=== PATIENT | male | born 1990 | race African-American/Black ===

== ENCOUNTER 2018-04-23 21:44 | Emergency (ER) | payer OTHER ==
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
[2018-04-24] MEDS ORDERED: OXYCODONE HCL IR 5 MG TABLET PO ONE (00:01)
[2018-04-24] MEDS ORDERED: ONDANSETRON 4 MG TAB.RAPDIS PO ONE (00:01)
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
[2018-04-24 00:30] VITALS: BP 131/77
== END 2018-04-24 00:45 | disposition home or self-care (01) ==
LOC: ER 21:44
DX: S06.9X9A Unspecified intracranial injury with loss of consciousness of unspecified duration, initial encounter (principal); S92.001A Unspecified fracture of right calcaneus, initial encounter for closed fracture; S80.11XA Contusion of right lower leg, initial encounter; M54.2 Cervicalgia; R07.9 Chest pain, unspecified; V49.40XA Driver injured in collision with unspecified motor vehicles in traffic accident, initial encounter; F17.200 Nicotine dependence, unspecified, uncomplicated; J45.909 Unspecified asthma, uncomplicated
CPT/HCPCS: 99283; 73610; 73030; 29515; S0119

== ENCOUNTER 2019-02-28 17:45 | Emergency (ER) | payer OTHER ==
[2019-02-28 17:53] VITALS: BP 120/92
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
== END 2019-02-28 19:18 | disposition left against medical advice (07) ==
LOC: ER 17:45
DX: R51 Headache (principal); M25.521 Pain in right elbow; M25.571 Pain in right ankle and joints of right foot; V49.40XA Driver injured in collision with unspecified motor vehicles in traffic accident, initial encounter; J45.909 Unspecified asthma, uncomplicated; Z53.20 Procedure and treatment not carried out because of patient's decision for unspecified reasons
CPT/HCPCS: 99281

== ENCOUNTER 2019-03-02 10:05 | Emergency (ER) | payer OTHER ==
[2019-03-02] MEDS ORDERED: HYDROCODONE/ACETAMINOPHEN 5-325 MG TABLET PO ONE (10:50)
[2019-03-02] MEDS ORDERED: IBUPROFEN 800 MG TABLET PO ONE (10:50)
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
--- NOTE | 2019-03-02 11:35 | RADIOLOGY REPORT (SQ) ---
EXAM DESCRIPTION: HAND RIGHT 3 VIEWS COMPLETED DATE/TIME: 03/02/2019 11:25 am REASON FOR STUDY: Injury COMPARISON: None. EXAM PARAMETERS: NUMBER OF VIEWS: Three views. TECHNIQUE: AP, lateral and oblique radiographic images acquired of the right hand. LIMITATIONS: None. FINDINGS: MINERALIZATION: Normal. BONES: No acute fracture or dislocation. No worrisome bone lesions. JOINTS: No effusions. SOFT TISSUES: No soft tissue swelling. No foreign body. OTHER: No other significant finding. IMPRESSION: NEGATIVE STUDY OF THE RIGHT HAND. NO RADIOGRAPHIC EVIDENCE OF ACUTE INJURY. TECHNICAL DOCUMENTATION: JOB ID: [id number] [employer]- All Rights Reserved Reading location - IP/workstation name: [email or web address]
--- NOTE | 2019-03-02 11:35 | RADIOLOGY REPORT (SQ) ---
EXAM DESCRIPTION: ELBOW RIGHT OVER 2 VIEWS COMPLETED DATE/TIME: 03/02/2019 11:25 am REASON FOR STUDY: Injury to shoulder elbow and wrist COMPARISON: None. NUMBER OF VIEWS: Two views. TECHNIQUE: AP and lateral radiographic images acquired of the right elbow. LIMITATIONS: None. FINDINGS: MINERALIZATION: Normal. BONES: Subtle linear radiolucency in the coronoid process of the ulna, visualized on the lateral imag e only. Bony structures otherwise grossly intact. No worrisome bone lesions. JOINT: Displaced anterior and posterior fat pads consistent with joint effusion. SOFT TISSUES: No soft tissue swelling. No foreign body. OTHER: No other significant finding. IMPRESSION: JOINT EFFUSION. SUBTLE LINEAR RADIOLUCENCY IN IN THE CORONOID PROCESS OF THE ULNA, POSS IBLY DUE TO A NONDISPLACED FRACTURE. OTHERWISE THE BONY STRUCTURES ARE INTACT VISUALIZED. TECHNICAL DOCUMENTATION: JOB ID: [id number] [employer]- All Rights Reserved Reading location - IP/workstation name: [email or web address]
--- NOTE | 2019-03-02 11:36 | RADIOLOGY REPORT (SQ) ---
EXAM DESCRIPTION: SHOULDER RIGHT 2 OR MORE VIEWS COMPLETED DATE/TIME: 03/02/2019 11:25 am REASON FOR STUDY: Injury to shoulder elbow and wrist COMPARISON: None. NUMBER OF VIEWS: Three views. TECHNIQUE: Internal rotation, external rotation, and Y view images acquired of the right shoulder. LIMITATIONS: None. FINDINGS: MINERALIZATION: Normal. BONES: No acute fracture. No worrisome bone lesions. JOINTS: No dislocation. VISUALIZED LUNGS AND RIBS: No pneumothorax. No rib fracture. SOFT TISSUES: No radiopaque foreign body. OTHER: No other significant finding. IMPRESSION: NEGATIVE STUDY OF THE RIGHT SHOULDER. NO RADIOGRAPHIC EVIDENCE OF ACUTE INJURY. TECHNICAL DOCUMENTATION: JOB ID: [id number] [email or web address]- All Rights Reserved Reading location - IP/workstation name: [email or web address]
--- NOTE | 2019-03-02 11:36 | RADIOLOGY REPORT (SQ) ---
EXAM DESCRIPTION: WRIST RIGHT 3 VIEWS COMPLETED DATE/TIME: 03/02/2019 11:25 am REASON FOR STUDY: Injury to shoulder elbow and wrist COMPARISON: None. NUMBER OF VIEWS: Three views. TECHNIQUE: AP, lateral, and oblique radiographic images acquired of the right wrist. LIMITATIONS: None. FINDINGS: MINERALIZATION: Normal. BONES: No acute fracture or dislocation. No worrisome bone lesions. Normal alignment. SOFT TISSUES: No soft tissue swelling. No foreign body. OTHER: No other significant finding. IMPRESSION: NEGATIVE STUDY OF THE RIGHT WRIST. NO RADIOGRAPHIC EVIDENCE OF ACUTE INJURY. TECHNICAL DOCUMENTATION: JOB ID: [id number] [employer]- All Rights Reserved Reading location - IP/workstation name: [email or web address]
[2019-03-02 12:06] VITALS: BP 122/78
== END 2019-03-02 12:08 | disposition home or self-care (01) ==
LOC: ER 10:05
DX: S52.044A Nondisplaced fracture of coronoid process of right ulna, initial encounter for closed fracture (principal); M25.521 Pain in right elbow; M25.531 Pain in right wrist; M25.511 Pain in right shoulder; V87.7XXA Person injured in collision between other specified motor vehicles (traffic), initial encounter; F17.210 Nicotine dependence, cigarettes, uncomplicated; J45.909 Unspecified asthma, uncomplicated
CPT/HCPCS: 99283